=== PATIENT | female | born 1980 | race Caucasian/White ===

== ENCOUNTER → 2020-06-09 | Outpatient (CLI) | payer MEDICAID ==
--- NOTE | 2020-06-09 15:55 | Diagnostic Imaging Report ---
INDICATION: Unsure dates. TECHNIQUE: Multiple real-time grayscale images were obtained over the gravid uterus. COMPARISON: None FINDINGS: There is a single live fetus in a breech presentation. heart rate was recorded at 155 bpm. Placenta is posterior and low lying. Amniotic fluid volume is normal. Biometrical measurements are as follows: Biparietal 3.33 cm, age 16 weeks 3 days. Head circumference 11.86 cm, age 16 weeks 0 days. Abdominal circumference 10.23 cm, age 16 weeks 2 days. Femur length 1.99 cm, age 16 weeks 0 days. Sonographic estimate age: 16 weeks 2 days. Sonographic estimated date of delivery: 11/22/2020. Estimated Weight: 144 gm (+/- 21 gm). LMP percentile: n/a%. heart rate: 155 beats per minute. number: 1 of 1. IMPRESSION: 1. Single live IUP 16 weeks 2 days gestational age. Estimated date of confinement sonographically is 11/22/2020. 2. Posterior low lying placenta. Follow-up could be performed. Dictated by: Dictated on workstation # [id number]
== END ==
LOC: RAD FS 14:36
PROVIDERS: ATTEND Family Medicine
DX: Z34.92 Encounter for supervision of normal pregnancy, unspecified, second trimester (principal); Z3A.16 16 weeks gestation of pregnancy
CPT/HCPCS: 76805

== ENCOUNTER → 2020-07-09 | Outpatient (CLI) | payer MEDICAID ==
[2020-07-09 17:16] LABS: HEMOGLOBIN 12.1 G/DL (11.5-16.0); MEAN PLATELET VOLUME 10.8 FL (7.4-10.4); WHITE BLOOD COUNT 10.3 10^3/uL (4.3-11.0)
== END ==
LOC: LAB FS 15:27
PROVIDERS: ATTEND Family Medicine
DX: Z34.92 Encounter for supervision of normal pregnancy, unspecified, second trimester (principal); Z3A.00 Weeks of gestation of pregnancy not specified
CPT/HCPCS: 36415; 82105; 82677; 84702; 85027; 86336; 86703; 86780; 86850; 86900; 86901; 87077; 87088; 87340

== ENCOUNTER → 2020-07-28 | Outpatient (CLI) | payer MEDICAID ==
--- NOTE | 2020-07-28 12:36 | Diagnostic Imaging Report ---
INDICATION: Anatomy survey. TECHNIQUE: Multiple real-time grayscale images were obtained over the gravid uterus. COMPARISON: 06/09/2020 FINDINGS: A single live intrauterine gestation is visualized in transverse position. The placenta is posterior with marginal placental previa. Amniotic fluid is normal. Biometrical measurements are as follows: Biparietal 5.60 cm, age 23 weeks 1 days. Head circumference 20.83 cm, age 23 weeks 0 days. Abdominal circumference 19.46 cm, age 24 weeks 2 days. Femur length 3.99 cm, age 23 weeks 0 days. Sonographic estimate age: 23 weeks 3 days. Sonographic estimated date of delivery: 11/21/2020. Estimated Weight: 601 gm (+/- 88 gm). LMP percentile: 53%. heart rate: 140 beats per minute. number: 1 of 1. Cerebellum: visualized Lateral ventricles: visualized Cavum septum pellucidum: visualized Nasal Bone: visualized Face: visualized Stomach: visualized Kidneys: Not well visualized Bladder: visualized Three vessel cord: Not visualized. A 2 vessel cord is seen Cord insertion: visualized 4 chamber heart: visualized outflow tracts: visualized Spine, upper: visualized Spine, lower: visualized Upper extremities: visualized Lower extremities: visualized Hands: Not well visualized Feet: Not well visualized The bilateral adnexa have an unremarkable appearance without evidence of mass or free fluid. IMPRESSION: 1. Single live intrauterine gestation measuring 23 weeks 3 days with an estimated due date of 11/21/2020. These are within range with the clinical dates. 2. Two-vessel cord is visualized. This can be seen as an isolated anatomic variant; however, there is an increased incidence of intrauterine growth restriction. Recommend continued followup as indicated. 3. The kidneys, hands, and feet are not well visualized. The remainder of the anatomic structures are seen and have a normal appearance. 4. Marginal placenta previa. Recommend attention on follow-up. Dictated by: Dictated on workstation # [id number]
== END ==
LOC: RAD 09:21
PROVIDERS: ATTEND Family Medicine
DX: Z34.92 Encounter for supervision of normal pregnancy, unspecified, second trimester (principal); Z3A.23 23 weeks gestation of pregnancy
CPT/HCPCS: 76805

== ENCOUNTER → 2020-09-03 | Outpatient (CLI) | payer MEDICAID ==
[2020-09-03 16:21] LABS: WHITE BLOOD COUNT 10.9 10^3/uL (4.3-11.0)
[2020-09-03 16:22] LABS: HEMOGLOBIN 11.9 G/DL (11.5-16.0); MEAN PLATELET VOLUME 10.6 FL (7.4-10.4)
== END ==
LOC: LAB FS 15:18
PROVIDERS: ATTEND Family Medicine
DX: Z34.92 Encounter for supervision of normal pregnancy, unspecified, second trimester (principal); Z3A.00 Weeks of gestation of pregnancy not specified
CPT/HCPCS: 36415; 82950; 85027; 86780

== ENCOUNTER → 2020-09-09 | Outpatient (CLI) | payer MEDICAID | LOC: LAB FS 11:30 | PROVIDERS: ATTEND Family Medicine | DX: R73.09 Other abnormal glucose (principal) | CPT/HCPCS: 36415; 82951; 82952 ==

== ENCOUNTER → 2020-09-29 | Outpatient (CLI) | payer MEDICAID ==
--- NOTE | 2020-09-29 17:48 | Diagnostic Imaging Report ---
INDICATION: High risk . Surveillance. TECHNIQUE: Multiple real-time grayscale images were obtained over the gravid uterus. COMPARISON: 07/28/2020. FINDINGS: A single live intrauterine gestation is visualized in cephalic presentation. heart tones measure 165 bpm. OSMIN measures 11.4 cm. The placenta is posterior. Previously noted placenta previa has resolved. The cervical length measures 6.1 cm. No evidence of funneling. Two-vessel cord is again noted. The outflow tracts are not well seen due to position. A formal anatomic survey was not performed. Biometrical measurements are as follows: Biparietal 8.23 cm, age 33 weeks 1 days. Head circumference 30.30 cm, age 33 weeks 5 days. Abdominal circumference 28.52 cm, age 32 weeks 4 days. Femur length 6.57 cm, age 33 weeks 6 days. Sonographic estimate age: 33 weeks 3 days. Sonographic estimated date of delivery: 11/14/2020. Estimated Weight: 2118 gm (+/- 310 gm). LMP percentile: 66%. heart rate: 165 beats per minute. number: 1 of 1. IMPRESSION: 1. Single live intrauterine gestation measuring 33 weeks 3 days with an estimated due date of 11/14/2020. These are within range with the clinical dates. 2. Previously noted placenta previa has resolved. The cervix is closed without evidence of funneling. 3. Redemonstration of a two-vessel cord. Outflow tracts are not well seen today due to position. Recommend follow-up as indicated. Dictated by: Dictated on workstation # [id number]
== END ==
LOC: RAD FS 11:41
PROVIDERS: ATTEND Family Medicine
DX: O09.93 Supervision of high risk pregnancy, unspecified, third trimester (principal); Z3A.33 33 weeks gestation of pregnancy
CPT/HCPCS: 76805